=== PATIENT | male | born 1945 | race Caucasian/White ===

== ENCOUNTER 2016-05-18 07:52 | Inpatient (IN) ==
--- NOTE | 2016-05-17 20:43 | Discharge Summary ---
<Roya Lee - Last Filed: 05/17/16 20:39> Date of Encounter: 05/17/16 - Discharge Diagnosis (1) Loosening of total shoulder replacement Priority: Primary Status: Acute Qualifiers: Encounter type: initial encounter Qualified Code(s): T84.038A - Mechanical loosening of other internal prosthetic joint, initial encounter; Z96.619 - Presence of unspecified artificial shoulder joint - Discharge Medications Home Medications: Aspirin [Adult Low Dose Aspirin EC] 81 mg PO DAILY 01/25/15 [History] Beclomethasone Diprop 40mcg [QVAR 40 mcg] 2 puff IH BID 01/25/15 [History] Clopidogrel [Plavix] 75 mg PO DAILY 01/25/15 [History] Docusate [Colace] 100 mg PO BID 01/25/15 [History] Ezetimibe [Zetia] 10 mg PO DAILY 01/25/15 [History] Furosemide [Lasix] 80 mg PO BID 01/25/15 [History] Gabapentin [Neurontin] 600 mg PO TID 01/25/15 [History] Isosorbide MONOnitrate [Isosorbide Mononitrate] 30 mg PO DAILY 01/25/15 [History ] Lisinopril [Zestril] 5 mg PO DAILY PRN 01/25/15 [History] Loratadine [Claritin] 10 mg PO HS 01/25/15 [History] Lovastatin [Mevacor] 40 mg PO DAILY 01/25/15 [History] Meclizine [Antivert] 25 mg PO TID PRN 01/25/15 [History] Metoprolol [Lopressor] 50 mg PO BID 01/25/15 [History] Montelukast [Singulair] 10 mg PO HS 01/25/15 [History] Multivitamin [Flintstones] 1 each PO 1200 01/25/15 [History] Nitroglycerin [Nitrostat] 0.4 mg SL Q5M PRN 01/25/15 [History] Pantoprazole Sodium [Protonix] 40 mg PO DAILY 01/25/15 [History] Polyethylene Glycol 3350 [MiraLAX] 17 gm PO DAILY 01/25/15 [History] Potassium Chloride 20 meq PO 1200 01/25/15 [History] Terazosin [Hytrin] 2 mg PO HS 01/25/15 [History] TraZODone 100 mg PO HS 01/25/15 [History] Warfarin [Coumadin] 6 mg PO MOWE 01/25/15 [History] HYDROcodone/Acet 5/325 mg [[place] 5-325 mg] 1 - 2 tab PO Q6H PRN #40 tab [Rx] Enoxaparin [Lovenox] 30 mg SQ Q12HR 05/18/16 [History] Esomeprazole Magnesium [Nexium] 40 mg PO DAILY 05/18/16 [History] Lidocaine Patch [Lidoderm 5% patch] 1 each TP DAILY 05/18/16 [History] Oxygen 2 l NS AD 05/18/16 [History] Potassium Chloride [K-Tab ER] 20 meq PO 1200 05/18/16 [History] Sertraline [Zoloft] 25 mg PO DAILY 05/18/16 [History] Testosterone Cypionate [Depo-Testosterone] 200 mg IM Q10D 05/18/16 [History] Warfarin [Coumadin] 7.5 mg PO SUTUTHFRSA 05/18/16 [History] Allergies/Adverse Reactions: Allergies acetaminophen [From Percocet] Adverse Reaction (Verified 05/18/16 09:08) anxiety attacK Oxycodone [From Percocet] Adverse Reaction (Verified 05/18/16 09:08) anxiety attacK Primary care physician: Mayra Crabtree CNP - Patient Status Disposition: Transfer Inpatient Rehab Fac Condition: Good - Discharge Instructions Follow Up With: Mayra Crabtree CNP [Primary Care Provider] - - Hospital Course Hospital course: Mr. Duque is a 71 year old male - Time Spent with Patient Total time spent providing and/or coordinating discharge services: <Bob Breaux - Last Filed: 05/19/16 06:32> Date of Encounter: 05/19/16 Time of Encounter: 06:31 - Discharge Diagnosis (1) Loosening of total shoulder replacement Priority: Primary Status: Acute Qualifiers: Encounter type: subsequent encounter Qualified Code(s): T84.038D - Mechanical loosening of other internal prosthetic joint, subsequent encounter; Z96.619 - Presence of unspecified artificial shoulder joint (2) Coronary artery disease Priority: Secondary Status: Chronic Qualifiers: Coronary Disease-Associated Artery/Lesion type: [place] artery [place] vs. transplanted heart: [place] heart Associated angina: angina presence unspecified Qualified Code(s): I25.10 - Atherosclerotic heart disease of [place] coronary artery without angina pectoris (3) Hyperlipidemia Priority: Secondary Status: Chronic Qualifiers: Hyperlipidemia type: unspecified Qualified Code(s): E78.5 - Hyperlipidemia , unspecified (4) Arrhythmia Priority: Secondary Status: Chronic Qualifiers: Arrhythmia type: unspecified cardiac arrhythmia Qualified Code(s): I49.9 - Cardiac arrhythmia, unspecified (5) History of myocardial infarction in adulthood Priority: Secondary Status: Chronic (6) Obesity (BMI 30.0-34.9) Priority: Secondary Status: Chronic (7) COPD (chronic obstructive pulmonary disease) Priority: Secondary Status: Chronic Qualifiers: COPD type: unspecified COPD Qualified Code(s): J44.9 - Chronic obstructive pulmonary disease, unspecified (8) History of DVT (deep vein thrombosis) Priority: Secondary Status: Chronic Primary care physician: Mayra Crabtree CNP - Patient Status Functional capacity at discharge: wheelchair bound Overall status at discharge: patient is progressing back to baseline - Hospital Course Hospital course: Mr. Duque is a 71 year old male The patient had an uneventful postoperative course. They received antibiotics and physical therapy and were discharged in stable condition. There will follow -up in the office in 2 weeks. - Time Spent with Patient Total time spent providing and/or coordinating discharge services:
--- NOTE | 2016-05-18 07:55 | History & Physical Report ---
Date of Encounter: 05/18/16 Time of Encounter: 07:55 24 Hour HP Update - Instructions Instructions: If the History and Physical is less than 30 days old and was completed prior to A.M. admission and or procedure and has NOT been updated on calendar day of procedure please complete this update prior to performing procedure. - Update Patient reports changes in Medical Condition: No Changes in assessment/condition: No Changes in Medication: No Preop tests/diagnostics Reviewed: Yes Surgery Remains Indicated: Yes Consent for Planned Operative Procedure(s) Verified: Yes - Pre-Operative Checklist Preoperative Checklist Indicated: No Prophylactic Antibiotic Ordered: Yes Is VTE Prophylaxis Indicated?: Yes
[2016-05-18] MEDS ORDERED: Famotidine 20 MG/2 ML VIAL IVP ONE (08:29)
[2016-05-18] MEDS ORDERED: Acetaminophen IV 1,000 MG/100 ML INFUS..BTL IVPB ONE (08:29)
[2016-05-18] MEDS ORDERED: Ringers Solution, Lactated 1,000 ML IVC SCH ×2 (08:30→12:24)
[2016-05-18] MEDS ORDERED: Albuterol 2.5 MG/3 ML NEBULIZER ONE (08:34)
[2016-05-18] MEDS ORDERED: Lidocaine -MPF 2% 2 ML VIAL ONE (08:42)
[2016-05-18] MEDS ORDERED: *HR* Midazolam HCl 2 MG/2 ML VIAL ONE (08:42)
[2016-05-18] MEDS ORDERED: *HR* Propofol 200 MG/20 ML VIAL IVP ONE (08:42)
--- NOTE | 2016-05-18 08:47 | Anesthesia Evaluation PreOp ---
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 Any Significant HX Other Medical History: Denies Any Significant HX Anesthesia History: No Prior Anesthetic Complications, Past Anesthesia (Left Shoulder Replacement) Alcohol Use: none Drug use: none Medications and Allergies Aspirin [Adult Low Dose Aspirin EC] 81 mg PO DAILY 01/25/15 [History] Beclomethasone Diprop 40mcg [Qvar 40 mcg] 2 puff IH BID 01/25/15 [History] Clopidogrel [Plavix] 75 mg PO DAILY 01/25/15 [History] Diazepam [Valium] 2.5 mg PO QAM 01/25/15 [History] Diazepam [Valium] 5 mg PO HS 01/25/15 [History] Docusate [Colace] 100 mg PO BID 01/25/15 [History] Enoxaparin [Lovenox] 125 mg SQ Q12HR 01/25/15 [History] Ezetimibe [Zetia] 10 mg PO DAILY 01/25/15 [History] Furosemide [Lasix] 80 mg PO BID 01/25/15 [History] Gabapentin [Neurontin] 600 mg PO TID 01/25/15 [History] Isosorbide MONOnitrate [Isosorbide Mononitrate] 30 mg PO DAILY 01/25/15 [History ] Lisinopril [Zestril] 5 mg PO DAILY 01/25/15 [History] Loratadine [Claritin] 10 mg PO HS 01/25/15 [History] Lovastatin [Mevacor] 40 mg PO DAILY 01/25/15 [History] Meclizine [Antivert] 25 mg PO TID PRN 01/25/15 [History] Meloxicam [Mobic] 15 mg PO DAILY 01/25/15 [History] Metoprolol [Lopressor] 50 mg PO BID 01/25/15 [History] Montelukast [Singulair] 10 mg PO HS 01/25/15 [History] Multivitamin [Flintstones] 1 each PO DAILY 01/25/15 [History] Nitroglycerin [Nitrostat] 0.4 mg SL Q5M PRN 01/25/15 [History] Pantoprazole Sodium [Protonix] 40 mg PO DAILY 01/25/15 [History] Polyethylene Glycol 3350 [MiraLAX] 17 gm PO DAILY 01/25/15 [History] Potassium Chloride 20 meq PO DAILY 01/25/15 [History] Terazosin [Hytrin] 2 mg PO HS 01/25/15 [History] TraZODone 100 mg PO HS 01/25/15 [History] Warfarin [Coumadin] 8 mg PO DAILY 01/25/15 [History] HYDROcodone/Acet 5/325 mg [[place] 5-325 mg] 1 - 2 tab PO Q6H PRN #40 tab [Rx] Allergies acetaminophen [From Percocet] Adverse Reaction (Verified 01/25/15 07:28) anxiety attacK Oxycodone [From Percocet] Adverse Reaction (Verified 01/25/15 07:28) anxiety attacK - Meds/Allergy Pre-op Review Medications Reviewed: Yes Allergies Reviewed: Yes Beta Blockers on Current Med List: Yes (Took Metoprolol today 0700) Anesthesia Results - Labs O2 Sat Height 2.01 m Height 2.01 m Weight 128.82 kg Weight 128.82 kg O2 Sat by Pulse Oximetry 93 Vital Signs Temp Pulse Resp BP Pulse Ox 98.1 F 72 18 107/63 93 L 05/18/16 08:13 05/18/16 08:13 05/18/16 08:13 05/18/16 08:13 05/18/16 08:13 Laboratory Tests 05/01/16 05/01/16 05/04/16 14:35 14:35 10:59 Hgb 12.3 L Hct 39.1 Plt Count 206 Sodium 140 Potassium 3.2 L BUN 11 Creatinine 0.94 - Imaging EKG: report reviewed (SR with Arrhythmia) Additional studies: Stress Test Normal EF 49% ECHO from EF 67% Anesthesia Exam O2 Sat Height 2.01 m Height 2.01 m Weight 128.82 kg Weight 128.82 kg O2 Sat by Pulse Oximetry 93 Vital Signs Temp Pulse Resp BP Pulse Ox 98.1 F 72 18 107/63 93 L 05/18/16 08:13 05/18/16 08:13 05/18/16 08:13 05/18/16 08:13 05/18/16 08:13 Height: 6'7 Weight: 284 lbs NPO (# of Hours): MN Pain Scale: 0 - HEENT Pupil (Motor): Pupils equal, EOMI Mallampati: III Teeth: Edentulous (no upper teeth) Oral Opening: Less than or equal to 3 - WRAPPER AND PRESERVER LOC: Oriented WRAPPER AND PRESERVER Motor: Normal RUE, Normal LUE, Normal RLE, Normal LLE, Normal Face [employer]PER [employer] PRESERVER Sensory: Normal: RUE, LUE, RLE, LLE, Face - Cardiac Rhythm: Regular JVD: No Carotid Bruit: No - Pulmonary Breath Sounds: bilateral Clear Respiratory Effort: Symmetrical Anesthesia Assess/Plan ASA Score: 4 (CAD HTN COPD Home Oxygen) Modified Shruti Scale for Level of Consciousness: Cooperative, oriented, and tranquil Anesthetic Plan: General, Regional Monitoring Plan: Standard Monitors Recovery Plan: PACU (Discussed GA and RA, possible post op ventilation, agrees to proceed)
[2016-05-18] MEDS ORDERED: Ondansetron 4 MG/2 ML VIAL IVP ONE (08:52)
[2016-05-18] MEDS ORDERED: *HR* Labetalol 100 MG/20 ML MDV IVP PRN (08:52)
[2016-05-18] MEDS ORDERED: *HR* HYDROmorphone (PF) 1 MG/ML SYRINGE IVP PRN ×2 (08:52→12:24)
[2016-05-18] MEDS ORDERED: Dexamethasone 4 MG/ML VIAL ONE (08:53)
[2016-05-18] MEDS ORDERED: CeFAZolin Pre 3,000 MG/100 ML 3,000 MG/100 ML BAG IVPB ONE (08:55)
[2016-05-18] MEDS ORDERED: Lidocaine 1% 20 ML MDV ID ONE (08:55)
[2016-05-18] MEDS ORDERED: *HR* Phenylephrine 10 MG/ML VIAL ONE (09:01)
[2016-05-18] MEDS ORDERED: ROPIVACAINE HCL/PF 0.5% 30 ML VIAL ONE (09:03)
[2016-05-18] MEDS ORDERED: Tetracaine/PF 20 MG/2 ML AMPUL SPINA ONE (09:04)
[2016-05-18] MEDS ORDERED: Bupivacaine/Clonidine Syringe 1 EACH SYRINGE ONE (09:04)
--- NOTE | 2016-05-18 09:56 | Anesthesia Procedures ---
Date of Encounter: 05/18/16 Time of Encounter: Procedures: Anesthesia - Nerve Block Procedure Date: 05/18/16 Time: Surgical Procedure: left total shoulder revision Checklist: Correct Patient Identifier, Correct procedure, History checked Correct side: Left Blood Thinner: Yes Monitor Applied: BP, Pulse Oximetry Supplemental Oxygen via Nasal Cannula (L/min): 3 Sedation: Versed (mg): 1 Indication: Post Op Analgesia Block Type: Interscalene Catheter placed: No Sterile Technique: Yes Ultrasound used: Yes Anatomy identified: Yes Visual spread of Local: Yes Neuro Stimulation: Yes Nerve Stimulator Range: 0.2 - 0.4 mA Blood on Needle Aspiration: No Smooth Injection of Local: Yes Pain with Injection of Local: No Prep: Chlorhexadine Needle: 22 x 50 mm Stimuplex Local: 0.25% Bupivicaine w/Clonidine 20 mcg/cc (10 for SCP 10 for T2), Ropivacaine (30 0.5% rop plain for supracla), Other Volume (cc): 50 Number of Attempts: 1 Complications: None/effective block Vitals: vss block per request of surgeon
--- NOTE | 2016-05-18 10:46 | Orthopedic Operative Note ---
Date of procedure: 05/18/16 Pre-op diagnosis: Aseptic loosening glenoid component pullout Post-op diagnosis: same Procedure: Procedure: Right Revision Total Shoulder replacement reverse Estimated blood loss: 300 cc Hardware: Large glenoid baseplate, one 6.5 screw, 2 .4.5 screws, large 42 lateral sphere, 42 central metaphyseal cup 15 mm spacer 3 constrained Karen Procedural Notes: Patient complete glenoid failure and pullout. Operative procedure: The patient was brought to the operating room and placed on the operating room table. The patient was placed in the modified beachchair position. All pressure points were padded appropriately. And the head was stabilized in the neutral position. The operative extremity was prepped and draped in the sterile surgical fashion. The patient received IV antibiotics prior to skin incision. A standard deltopectoral approach was made to the operative shoulder. Incision was made to the skin and subcutaneous tissue through the old incision,hemo stasis was obtained with Bovie cautery. Using careful blunt dissection the cephalic vein was identified and mobilized medially. The deltopectoral interval was developed and the clavipectoral fascia was incised. An extensive debridement was performed, and the shoulder was dislocated. Using an osteotome to clear out the soft tissue, the humeral spacer including the Karen the metal spacer were removed followed by the metaphyseal cup. The stem was tested and found to be well secured. Attention was then turned to the glenoid. The glenoid component was completely disassociated from the bone. Anterior and posterior Bank[place] retractors were used to expose the glenoid, the glenoid component was removed without incident. First the glenosphere was disengaged, and the screws removed from the baseplate, and finally the baseplate was removed without significant bone loss. 1 broken screw was left behind. The glenoid guide was seated the guide pin was placed in a superior direction putting an inferior tilt on the glenoid component. The centering hole was made the glenoid was reamed with the appropriate reamer. The glenoid baseplate was seated and secured with 2 4.5 screws and one 6.5 screw. The baseplate was irrigated and dried the 42 lateral glenosphere was seated and secured. Attention was then turned to the humeral side. With the humeral stem well fixed , a new 42 central metaphyseal component was fixed to the stem. Trial reduction revealed excellent motion and stability with a 15 mm metal spacer and the 3 constrained Karen spacer trials were removed and implants were seated and secured. The deep tissue was irrigated with pulse irrigation deltopectoral interval was closed with #2 PDS suture . Superficially the subcutaneous tissue was closed with 0 PDS suture, the skin was closed with skin autumn. The patient placed sterile dressing, postoperative brace extubated and transferred to the recovery room in stable condition. Anesthesia: GETA Surgeon: Bob Breaux Button Buttonhole Marker: Roya Lee Condition: stable Disposition: PACU
[2016-05-18] MEDS ORDERED: Ipratropium/Albuterol Neb 3 ML ONE (11:01)
--- NOTE | 2016-05-18 11:33 | Anesthesia Evaluation Post Op ---
Date of Encounter: 05/18/16 Time of Encounter: 11:33 - Vital Signs Vital Signs: vss - Lungs Lungs: Clear Ascult./Percussion, Rhonchi - Airway Airway: Non-obstructed - Cardiovascular Baseline Rhythm - Mental Status Mental Status: Asleep with brisk response to light stimulation - Pain Pain Scale used: Angelica (Faces) (tolerable) - Nausea Vomiting Nausea Vomiting: Not Present - Hydration Hydration: Ice chips - Discharge PostOp Status: Transfer Patient to floor
[2016-05-18] MEDS ORDERED: Nitroglycerin 0.4 MG TAB.SUBL SL PRN (12:24)
[2016-05-18] MEDS ORDERED: Acetaminophen 325 MG TABLET PO PRN (12:24)
[2016-05-18] MEDS ORDERED: NON-FORMULARY MEDICATION 1 EACH EACH (Oxygen [Oxygen] 2 L) NS SCH (12:24)
[2016-05-18] MEDS ORDERED: *HR* HYDROcodone/Acet 5/325 mg TABLET PO PRN (12:24)
[2016-05-18] MEDS ORDERED: Temazepam 15 MG CAPSULE PO PRN (12:24)
[2016-05-18] MEDS ORDERED: Sennosides 8.6 MG TABLET PO PRN (12:24)
[2016-05-18] MEDS ORDERED: Naloxone 0.4 MG/ML INJ IVP PRN (12:24)
[2016-05-18] MEDS ORDERED: Ondansetron 4 MG/2 ML VIAL IVP PRN (12:24)
[2016-05-18] MEDS ORDERED: MOM Conc 10 ML UD.LIQ PO PRN (12:24)
[2016-05-18] MEDS: Gabapentin 300 MG CAPSULE PO SCH ×2 (14:31→21:47)
[2016-05-18] MEDS: Multivit/Ca/Min/Fe/FA 1 TAB TABLET PO SCH (14:31)
[2016-05-18] MEDS: *HR* Enoxaparin 30 MG/0.3 ML SYRINGE SQ SCH (16:36)
[2016-05-18] MEDS: ceFAZolin 3,000 MG in D5% in Water 100 ML IVPB SCH ×2 (16:37→23:43)
[2016-05-18 17:34] LABS: Hematocrit 37.8 % (37.5-50.1); Hemoglobin 11.6 g/dL (12.9-16.9)
[2016-05-18] MEDS ORDERED: *HR* Warfarin 4 MG TABLET PO SCH (18:00)
[2016-05-18] MEDS ORDERED: *HR* Enoxaparin 30 MG/0.3 ML SYRINGE SQ SCH (18:00)
[2016-05-18] MEDS ORDERED: traZODone 50 MG TABLET PO SCH (21:00)
[2016-05-18] MEDS ORDERED: Loratadine 10 MG TABLET PO SCH (21:00)
[2016-05-18] MEDS: Beclomethasone 40mcg MDI IH SCH (21:34)
[2016-05-18] MEDS: Furosemide 40 MG TABLET PO SCH (21:47)
[2016-05-19] MEDS: *HR* Enoxaparin 30 MG/0.3 ML SYRINGE SQ SCH (05:19)
--- NOTE | 2016-05-19 06:33 | Orthopedics Progress Note ---
Date of Encounter: 05/19/16 Time of Encounter: 06:32 - Assessment and Plan (1) Loosening of total shoulder replacement Current Visit: Yes Status: Acute Qualifiers: Encounter type: subsequent encounter Qualified Code(s): T84.038D - Mechanical loosening of other internal prosthetic joint, subsequent encounter; Z96.619 - Presence of unspecified artificial shoulder joint (2) Coronary artery disease Current Visit: Yes Status: Chronic Qualifiers: Coronary Disease-Associated Artery/Lesion type: [place] artery [place] vs. transplanted heart: tribal heart Associated angina: angina presence unspecified Qualified Code(s): I25.10 - Atherosclerotic heart disease of tribal coronary artery without angina pectoris (3) Hyperlipidemia Current Visit: Yes Status: Chronic Qualifiers: Hyperlipidemia type: unspecified Qualified Code(s): E78.5 - Hyperlipidemia , unspecified (4) Arrhythmia Current Visit: Yes Status: Chronic Qualifiers: Arrhythmia type: unspecified cardiac arrhythmia Qualified Code(s): I49.9 - Cardiac arrhythmia, unspecified (5) History of myocardial infarction in adulthood Current Visit: Yes Status: Chronic (6) Obesity (BMI 30.0-34.9) Current Visit: Yes Status: Chronic (7) COPD (chronic obstructive pulmonary disease) Current Visit: Yes Status: Chronic Qualifiers: COPD type: unspecified COPD Qualified Code(s): J44.9 - Chronic obstructive pulmonary disease, unspecified (8) History of DVT (deep vein thrombosis) Current Visit: Yes Status: Chronic Subjective Interval history: Patient was seen this morning doing well without complaints. Afebrile vital signs stable. Operative extremity: Neurovascularly intact Dressing clean dry and intact Calves nontender Assessment and plan: Continue with postoperative care Discharged today Objective Vital signs: Vital Signs Temp Pulse Resp BP Pulse Ox 05/19/16 04:00 97.9 F 88 18 108/66 93 L 05/19/16 00:00 98.2 F 86 15 102/64 93 L 05/18/16 21:34 18 93 L 05/18/16 20:00 98.2 F 75 17 98/68 94 L 05/18/16 15:13 98.4 F 77 16 96/63 92 L 05/18/16 14:42 98.2 F 80 12 135/86 93 L 05/18/16 14:08 98.7 F 91 12 119/75 94 L 05/18/16 12:57 98.4 F 72 12 104/65 91 L 05/18/16 11:55 98.1 F 76 12 103/67 91 L 05/18/16 11:40 68 18 100/60 92 L 05/18/16 11:30 98.6 F 71 18 94/57 92 L 05/18/16 11:20 76 18 101/64 93 L 05/18/16 11:10 72 16 101/68 92 L 05/18/16 11:00 99.0 F 78 14 129/81 94 L 05/18/16 09:40 72 110/71 94 L 05/18/16 09:25 75 128/83 94 L 05/18/16 09:18 18 107/63 93 L 05/18/16 08:58 98.1 F 72 18 107/63 93 L 05/18/16 08:13 98.1 F 72 18 107/63 93 L Intake and Output 05/18/16 05/18/16 05/19/16 15:59 23:59 07:59 Intake Total 900 / 900 580 / 580 Output Total 300 / 300 400 / 400 500 / 500 Balance 600 / 600 180 / 180 -500 / -500 Intake: IV Fluids 900 / 900 100 / 100 Lactated Ringers 1,000 ML 900 / 900 @ 25 mls/hr IVC .Q24H [facility] Rx#:[id number] Ancef 3,000 MG In 100 / 100 Dextrose 5% 100 ML @ 200 mls/hr IVPB Q8HR [facility] Rx#: [id number] Oral 480 / 480 Output: Urine 400 / 400 500 / 500 Estimated Blood Loss 300 / 300 Other: Meal Dinner Percent of Meal Consumed 100% Weight 128.82 kg - Labs CBC & BMP: 05/18/16 17:21 Labs: Abnormal lab results Hgb 11.6 g/dL (12.9-16.9) L 05/18/16 17:21 - VTE Documentation of Mechanical Device: Venous foot pump, device Consult Discharge Plan - Plan Referrals: Mayra Crabtree, D[employer] ST[employer] LOADER [Primary Care Provider] -
[2016-05-19] MEDS ORDERED: Isosorbide MONOnitrate (24 HR) 30 MG TAB.ER.24H PO SCH (09:00)
[2016-05-19] MEDS ORDERED: (Ezetimibe [Zetia] 10 MG) PO SCH (09:00)
[2016-05-19] MEDS ORDERED: Aspirin Enteric Coated 81 MG Tablet PO SCH (09:00)
[2016-05-19 09:04] LABS: Hematocrit 39.4 % (37.5-50.1); Hemoglobin 12.2 g/dL (12.9-16.9); INR 1.1; Prothrombin Time 12.1 Seconds (9.4-12.1)
[2016-05-19] MEDS: Furosemide 40 MG TABLET PO SCH (09:28)
[2016-05-19] MEDS: Gabapentin 300 MG CAPSULE PO SCH (09:29)
[2016-05-19] MEDS: Beclomethasone 40mcg MDI IH SCH (10:00)
[2016-05-19 11:18] VITALS: BP 117/70
[2016-05-19] MEDS: Multivit/Ca/Min/Fe/FA 1 TAB TABLET PO SCH (12:00)
[2016-05-19] MEDS ORDERED: *HR* Warfarin 7.5 MG TABLET PO SCH (18:00)
== END 2016-05-19 14:15 | DRG 483 ==
LOC: SAMDAY 07:52 → 3NENU 11:48
PROVIDERS: ADMIT Orthopaedic Surgery; ATTEND Orthopaedic Surgery